=== PATIENT | male | born 1990 | race Caucasian/White ===

== ENCOUNTER 2019-02-19 12:37 | Emergency (ER) | payer BC, OTHER ==
[2019-02-19] MEDS ORDERED: HYDROcodone/ACETAMIN 5-325 MG* 1 TAB PO ONE ×2 (12:53→13:56)
--- NOTE | 2019-02-19 13:45 | UC ---
Shoulder Pain HPI - HPI Summary HPI Summary: CHIEF COMPLAINT and HPI: This is a healthy 28 yo male who fell from a horse and injured his right shoulder just prior to arrival in the [facility]. Pain is moderate. Increases with movement. No c/o numbness or motor loss in RUE. 7/ 10 pain. Medications & Allergies Reviewed. Nurses Note Reviewed. "30 min ago fell off a horse, injured right shoulder - he thinks he may have dislocated it" Hypertension status reviewed. None. Visit History Reviewed. Chronic conditions and problem list reviewed. Information contributory to present complaint: noncontributory. - History of Current Complaint Chief Complaint: UCUpperExtremity Stated Complaint: SHOULDER INJURY Time Seen by Provider: 02/19/19 13:40 Pain Intensity: 7 - Allergies/Home Medications Allergies/Adverse Reactions: Allergies Allergy/AdvReac Type Severity Reaction Status Date / Time No Known Allergies Allergy Verified 02/19/19 12:52 Home Medications: Home Medications Naproxen Sodium [Aleve] 3 tab PO ONCE PRN 02/19/19 [History Confirmed 02/19/19] PMH/Surg Hx/FS Hx/Imm Hx - Additional Past Medical History Additional PMH: PAST MEDICAL HISTORY: FAMILY HISTORY: Positive history of: lymphoma -Denies hypertension, heart disease, stroke, diabetes SOCIAL HISTORY: Employment: [employer], 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 Family Environment: alone Habits: non smoker; rare ETOH - Surgical History Surgical History: None - Social History Alcohol Use: Rare Substance Use Type: None Smoking Status (MU): Never Smoked Tobacco Review of Systems All Other Systems Reviewed And Are Negative: Yes Constitutional: Positive: Negative. Negative: Fever Respiratory: Positive: Negative. Negative: Shortness Of Breath Cardiovascular: Positive: Negative. Negative: Palpitations Gastrointestinal: Positive: Negative. Negative: Abdominal Pain Motor: Positive: Decreased ROM - right upper extremity Musculoskeletal: Positive: Decreased ROM - right shoulder Neurological: Positive: Negative. Negative: Paresthesia - NO LATERAL UPPER ARM OR DISTAL TINGLING OR NUMBNESS Physical Exam - Summary Physical Exam Summary: Appearance: The patient is well-appearing, is in no pain or distress, and is well-nourished. Eyes: Conjunctiva are clear. Pupils are equal and reactive to light and accommodation. Extra ocular muscle movement is intact. ENT: The hearing is grossly normal, the pharynx is normal, and the TMs are normal. There is no muffled or hoarse voice. No stridor. Neck: The neck is supple and there is no lymphadenopathy. Respiratory: The chest is nontender to palpation and without crepitus. The lungs are clear, there are normal breath sounds, and there is no respiratory distress. No wheezes, rales or rhonchi. Cardiovascular: Heart sounds reveal a regular rate and rhythm. There are no clicks, rubs or murmurs. There are no carotid bruits or thrills. Circulation is grossly intact. Abdomen: The abdomen is soft and nontender. There is no organomegaly. Bowel sounds are present and within normal limits. No point tenderness at McBurneys point. Musculoskeletal: Strength is intact. The patient moves all extremities. However , his arm is in a sling and he feels significant pain with movement of right arm. Distal CMS intact. Neurological: The patient is alert. Motor and sensory are examination grossly intact. Speech is normal. Psychological: The patient displays age appropriate behavior Skin: Negative for rashes. x ray: positive for humeral shaft fracture. Vital Signs: Initial Vital Signs Temp 97.7 F 02/19/19 12:51 Pulse 76 02/19/19 12:51 Resp 14 02/19/19 12:51 BP 99/64 02/19/19 12:51 Pulse Ox 97 02/19/19 12:51 Shoulder Course/Dx - Course Course Of Treatment: MEDICAL DECISION MAKING & PLAN: This is a healthy 28 yo male who fell from a horse and injured his right shoulder just prior to arrival in the [facility]. Pain is moderate. Increases with movement. No c/o numbness or motor loss in RUE. 7/10 pain. X ray shows humeral shaft, proximal fracture. Given sling and swath with montserrat wrap. Pain decreased with stabilization of right arm. I spoke to Dr. Lawrence who will see the patient on Thursday. Dx is humeral shaft fracture, closed. MEDICATIONS REVIEWED: Medications have been included in the original chart and reviewed. HYPERTENSION STATUS REVIEWED. None. - Differential Dx/Diagnosis Differential Diagnosis/HQI/PQRI: Contusion, Fracture (Closed), Sprain, Strain Provider Diagnosis: Humerus fracture Discharge - Sign-Out/Discharge Documenting (check all that apply): Patient Departure All imaging exams completed and their final reports reviewed: Yes - Discharge Plan Condition: Stable Disposition: HOME Prescriptions: HYDROcodone/ACETAMIN 5-325 MG* [Lynch 5-325 TAB*] 1 tab PO Q6H #10 tab MDD 4 Patient Education Materials: Proximal Humerus Fracture (ED) Referrals: No Primary Care Phys,NOPCP [Primary Care Provider] - Additional Instructions: WE DISCUSSED: PLEASE SEEK CARE AT THE EMERGENCY DEPARTMENT IF SYMPTOMS WORSEN OR IF NEW SYMPTOMS DEVELOP. FOLLOW UP WITH YOUR PRIMARY CARE PHYSICIAN IF CONDITION CONTINUES BEYOND 3 DAYS WITHOUT IMPROVEMENT. We are open from 7 a.m. to 10 p.m. Call us with any questions or concerns. YOUR DIAGNOSIS IS: FRACTURE OF YOUR RIGHT HUMERUS YOUR PRESCRIPTION RECOMMENDATION IS: VICODIN FOR PAIN # 10; ALSO THE PAIN REGIMEN BELOW. OTHER INSTRUCTIONS: WARM MOIST SOAKS IN THE MORNING; ICE TO AREA FO4R ACUTE PAIN. SLING AND MONTSERRAT WRAP FOR IMMOBILIZATION. GO TO ED FOR INCREASED PAIN. For pain: Ibuprofen (Motrin and other brand names) 400-600mg PLUS acetaminophen (Tylenol and other brand names) 500mg - 1000mg every 8 hours. Maximum is 3 doses a day. If this dosage is required for more than 5 days, you should re-check with your doctor. The combination of these two over-the- counter medications can be more effective than each one taken alone. Please check with the pharmacist if you have questions about your allergies to these medications. To help you sleep: If you feel as if you want to calm down and get sleepy, over the counter diphenhydramine (Benadryl and other brand names), 25 mg up to every 8 hours may be useful. Please check with the pharmacist if you have questions about your allergies to these medications. Please check with the pharmacist if you have questions about your allergies to these medications. CALL DR. LAWRENCE, ORTHOPEDICS ON THURSDAY: [phone]. - Billing Disposition and Condition Condition: STABLE Disposition: Home
== END 2019-02-19 15:07 | disposition home or self-care (01) ==
LOC: UCEAST 12:37
DX: S42.214A Unspecified nondisplaced fracture of surgical neck of right humerus, initial encounter for closed fracture (principal); V80.010A Animal-rider injured by fall from or being thrown from horse in noncollision accident, initial encounter; Y93.52 Activity, horseback riding; Y92.9 Unspecified place or not applicable
CPT/HCPCS: 99203; G0463